=== PATIENT | male | born 1975 | race American Indian/Alaskan Native ===

== ENCOUNTER 2022-01-21 14:09 | Emergency (ER) | payer OTHER ==
[2022-01-21 17:35] VITALS: BP 132/84; PULSE 79
== END 2022-01-21 15:35 | disposition home or self-care (01) ==
LOC: JD.ED 14:09
DX: S43.401A Unspecified sprain of right shoulder joint, initial encounter (principal); Z87.891 Personal history of nicotine dependence; W22.09XA Striking against other stationary object, initial encounter
CPT/HCPCS: 73030-26-RT; 73030-RT; 99283-25; 99284